=== PATIENT | female | born 1945 | race Caucasian/White ===

== ENCOUNTER → 2020-03-09 06:00 | Outpatient (CLI) | payer OTHER ==
[~2020-03-09 06:00] MED LIST: ATORVASTATIN CA10 MG; ATORVASTATIN CA40 MG PO; COZAAR50 MG PO; METFORMIN HCL500 M3 PO; TIROSINT75 MCG PO
== END | disposition home or self-care (01) ==
LOC: LAB 06:00 → ADM 10:00 → CIR.AMB 03-14 07:00 → EDSTATUS 03-14 10:00 → CIR.AMB 03-14 10:00
PROVIDERS: ATTEND Obstetrics & Gynecology Gynecology
DX: N36.41 Hypermobility of urethra (principal); N81.3 Complete uterovaginal prolapse; N81.82 Incompetence or weakening of pubocervical tissue; N81.83 Incompetence or weakening of rectovaginal tissue; N81.2 Incomplete uterovaginal prolapse; N82.8 Other female genital tract fistulae; Z01.810 Encounter for preprocedural cardiovascular examination; D68.8 Other specified coagulation defects